=== PATIENT | male | born 1970 | race Hispanic/Latino ===

== ENCOUNTER 2020-07-20 12:16 | Emergency (ER) | payer OTHER ==
[~2020-07-20] VITALS: Ht 170.2 cm; Wt 83.5 kg
[2020-07-20] MEDS ORDERED: KETOROLAC TROMETHAMINE 30 MG/ML VIAL IV STA (12:36)
[2020-07-20] MEDS ORDERED: SODIUM CHLORIDE 0.9% 1000ML 1,000 ML IV STA (12:36)
[2020-07-20] MEDS ORDERED: ONDANSETRON HCL INJ 2MG/ML 2ML 2 MG/ML VIAL IV STA (12:36)
[2020-07-20] MEDS ORDERED: PANTOPRAZOLE 40 MG 10ML VIAL IV STA (12:36)
[2020-07-20 13:09] LABS: BASOPHILS % 0.6 % (0.0-1.0); EOSINOPHILS # (AUTO) 0.2 (0.0-0.4); EOSINOPHILS % 2.9 % (0.0-6.0); HEMATOCRIT 45.4 % (38.2-49.6); HEMOGLOBIN 15.7 g/dL (14.0-18.0); LYMPHOCYTES # (AUTO) 2.3 (1.0-3.2); LYMPHOCYTES % 34.9 % (18.0-39.1); MEAN CORPUSCULAR HEMOGLOBIN 30.8 pg (28-32); MEAN CORPUSCULAR HGB CONC 34.6 g/dL (31-35); MEAN CORPUSCULAR VOLUME 89.2 fL (81-99); MONOCYTES # (AUTO) 0.4 (0.2-0.8); MONOCYTES % 5.8 % (4.4-11.3); NEUTROPHILS # (AUTO) 3.6 (2.1-6.9); NEUTROPHILS % 55.6 % (38.7-80.0); PLATELET COUNT 197 x10e3/uL (140-360); RED BLOOD COUNT 5.09 x10e6/uL (4.3-5.7)
[2020-07-20 13:22] LABS: INR 0.94
[2020-07-20 13:23] LABS: PARTIAL THROMBOPLASTIN TIME 28.3 seconds (23.8-35.5)
--- NOTE | 2020-07-20 13:26 | Diagnostic Imaging Report ---
EXAM: CT Abdomen and Pelvis WITHOUT intravenous contrast INDICATION: ^Stone Protocol ^[id number] ^1240 ^Y. COMPARISON: None. TECHNIQUE: Abdomen and pelvis were scanned utilizing a multidetector helical scanner from the lung base to the pubic symphysis without administration of IV contrast. Coronal and sagittal reformations were obtained. Routine technique was performed. IV CONTRAST: None ORAL CONTRAST: None COMPLICATIONS: None RADIATION DOSE: Total DLP: 406 mGy*cm Dose modulation, iterative reconstruction, and/or weight based adjustment of the mA/kV was utilized to reduce the radiation dose to as low as reasonably achievable. FINDINGS: LOWER THORAX: Normal. HEPATOBILIARY: No focal hepatic lesions. No biliary ductal dilatation. The gallbladder appears unremarkable. SPLEEN: No splenomegaly. PANCREAS: No focal masses or ductal dilatation. ADRENALS: No adrenal nodules. KIDNEYS/URETERS: Negative for renal calculus. Negative for hydronephrosis or surrounding inflammatory changes. Ureters are not dilated. Negative for ureteral stone. PELVIC ORGANS/BLADDER: Urinary bladder shows mild wall thickening. Prostate is of normal size. PERITONEUM / RETROPERITONEUM: No free air or fluid. LYMPH NODES: No lymphadenopathy. VESSELS: Unremarkable. GI TRACT: Visualized bowel loops are nondilated. Moderate retained stool is noted within the right colon. Normal appendix is noted. Descending colon and sigmoid colon are decompressed. No surrounding inflammatory changes are noted. Negative for obstruction. Stomach is decompressed limiting evaluation. BONES AND SOFT TISSUES: No acute osseous abnormality. Mild multilevel degenerative changes of the lower thoracic spine are noted. No suspicious destructive lesion. Well-defined sclerotic lesion in the right femoral neck and a few subcentimeter sclerotic foci in the left femoral head are nonspecific and probably relate to bone islands. Soft tissues are unremarkable IMPRESSION: Mild bladder wall thickening could relate to cystitis. Correlate with urinalysis. Negative for urinary tract calculus or hydronephrosis. Signed by: Adonis Escobar MD on 07/20/2020 1:23 PM
[2020-07-20 13:41] LABS: BILIRUBIN,URINE NEGATIVE (NEGATIVE); CLARITY,URINE CLEAR (CLEAR); COLOR,URINE YELLOW (YELLOW); KETONES,URINE NEGATIVE (NEGATIVE); LEUKOCYTE ESTERASE ,URINE NEGATIVE (NEGATIVE); NITRITE,URINE NEGATIVE (NEGATIVE); PROTEIN,URINE DIPSTICK NEGATIVE (NEGATIVE); URINE UROBILINOGEN 0.2 mg/dL (0.2 - 1); WBC,URINE (MAN) 0-5 /HPF (0-5)
--- OUTSIDE RECORDS SUMMARY | 2020-07-20 13:48 | XMS REPORT | Continuity of Care Document ---
Author Author [facility] Organization [facility] Address [address] [place] [address] Phone Unavailable Care Team Providers Care Water Truck Driver Name Role Phone Asked, Pcp No PCP Unavailable Neela GALVAN Attphys Unavailable Problems Condition Name Condition Details Condition Category Status Onset Date Resolution Date Last Treatment Date Treating Clinician Comments Source Ileus Ileus Disease Active 2019-05-18 00:00:00 Mynor Deras Allergies, Adverse Reactions, Alerts This patient has no known allergies or adverse reactions. Social History Social Habit Start Date Stop Date Quantity Comments Source History SDOH Alcohol Std Drinks [facility] History SDOH Alcohol Binge [facility] Sex Assigned At [facility] Tobacco use and exposure 2019-05-18 00:00:00 2019-05-18 00:00:00 Lindarodrigue zahraa used [facility] Alcohol intake 2019-05-18 00:00:00 2019-05-18 00:00:00 Lifetime non-drinker (finding) [facility] History SDOH Alcohol Frequency 2019-05-18 00:00:00 2019-05-18 00:00:0 0 1 Mynor Mooreist Smoking Status Start Date Stop Date Source Never smoker Mynor garcia Medications Ordered Medication Name Filled Medication Name Start Date Stop Da te Current Medication? Ordering Clinician Indication Dosage Frequency Signature (SIG) Comments Components Source acetaminophen (TYLENOL) 650 MG 8 hr tablet 2019-05-19 14:25:36 Yes 650mg Q8H Take 650 mg by mouth every 8 (eight) hours as needed f or mild pain. Mynor Deras Procedures This patient has no known procedures. Plan of Care Planned Activity Planned Date Details Comments Source Future Scheduled Test 2020-03-27 00:00:00 INFLUENZA VACCINE [code = INFLUENZA VACCINE] Mynor Deras Results Test Description Test Time Test Comments Results Result Comments Source CT ABDOMEN/PELVIS WO 2020-07-20 13:19:00 [facility] CENTERName: FREDDIE KAPOOR : 1970 Sex: M [place] [id number] [place] [id number] Patient Name: FREDDIE KAPOOR MR #: [id number] : 1970 Age/Sex: 50/M Req #: [id number] [facility] Physician: Ordered by: BAYLEE GALVAN MD Report #: [id number] Location: ER Room/Bed: Procedure: [id number] CT/CT ABDOMEN/PELVIS WO Exam Date: 07/20/20 Exam Time: 1240 REPORT STATUS: Signed EXAM: CT Abdomen and Pelvis WITHOUT intravenous contrast INDICATION: Stone Protocol [id number] 1240 Y. COMPARISON: None. TECHNIQUE: Abdomen and pelvis were scanned utilizing a multidetector helical scanner from the lung base to the pubic symphysis without administration of IV contrast. Coronal and sagittal reformations were obtained. Routine technique was performed. IV CONTRAST: None ORAL CONTRAST: None COMPLICATIONS: None RADIATION DOSE: Total DLP: 406 mGy*cm Dose modulation, iterative reconstruction, and/or weight based adjustment of the mA/kV was utilized to reduce the radiation dose to as low as reasonably achievable. FINDINGS: LOWER THORAX: Normal. HEPATOBILIARY: No focal hepatic lesions. No biliary ductal dilatation. The gallbladder appears unremarkable. SPLEEN: No splenomegaly. PANCREAS: No focal masses or ductal dilatation. ADRENALS: No adrenal nodules. KIDNEYS/URETERS: Negative for renal calculus. Negative for hydronephrosis or surrounding inflammatory changes. Ureters are not dilated. Negative for ureteral stone. PELVIC ORGANS/BLADDER: Urinary bladder shows mild wall thickening. Prostate is of normal size. PERITONEUM / RETROPERITONEUM: No free air or fluid. LYMPH NODES: No lymphadenopathy. VESSELS: Unremarkable. GI TRACT: Visualized bowel loops are nondilated. Moderate retained stool is noted within the right colon. Normal appendix is noted. Descending colon and sigmoid colon are decompressed. No surrounding inflammatory changes are noted. Negative for obstruction. Stom ach is decompressed limiting evaluation. BONES AND SOFT TISSUES: No acute osseous abnormality. Mild multilevel degenerative changes of the lower thoracic spine are noted. No suspicious destructive lesion. Well-defined sclerotic lesion in the right femoral neck and a few subcentimeter sclerotic foci in the left femoral head are nonspecific and probably relate to bone islands. Soft tissues are unremarkable IMPRESSION: Mild bladder wall thickening could relate to cystitis. Correlate with urinalysis. Negative for urinary tract calculus or hydronephrosis. Signed by: Cindy Escobar MD on 07/20/2020 1:23 PM Dictated By: CINDY ESCOBAR MD [id number] Transcribed By: KEVAN on 07/20/20 1323 COPY TO: BAYLEE GALVAN MD
--- OUTSIDE RECORDS SUMMARY | 2020-07-20 13:48 | XMS REPORT | Clinical Summary ---
Author Author [facility] Organization [facility] Address Unknown Phone Unavailable Care Team Providers Care Business Performance Advisor Name Role Phone Asked, No Pcp PCP Unavailable Allergies No Known Active Allergies Medications End Date Status Medication Sig Dispensed Refills Start Date Active acetaminophen (TYLENOL) Take 650 mg 0 650 MG 8 hr tablet by mouth every 8 (eight) hours as needed for mild pain. Active Problems Problem Noted Date Ileus 05/18/2019 Social History Date Tobacco Use Types Packs/Day Years Used Never Smoker Smokeless Tobacco: Never Used Drinks/Week oz/Week Comments Alcohol Use Never Alcohol Habits Answer Date Recorded How often do you have a drink containing alcohol? Never 05/18/2019 How many drinks containing alcohol do you have on No t asked a typical day when you are drinking? How often do you have six or more drinks on one Not asked occasion? Sex Assigned at Date Recorded Not on file Last Filed Vital Signs Not on file Plan of Treatment Health Maintenance Due Date Last Done Comments INFLUENZA VACCINE 03/27/2020 Results Not on fileafter 07/20/2019 Insurance Type Payer Benefit Subscriber ID Effective Phone Address Plan / Dates Group O CIGNA CIGNA OPEN [id number] ACCESS/NET resent WORK Advance Directives For more information, please contact: [phone] Patient Inspection Manager Explanation Type Date Recorded Advance Directives, 05/18/2019 12:39 AM Living Will and Medical Power of Diesel Engine Engineer
[2020-07-20 13:58] LABS: ALANINE AMINOTRANSFERASE 26 IU/L (0-55); ALBUMIN 4.6 g/dL (3.5-5.0); ALBUMIN/GLOBULIN RATIO 1.5 (0.8-2.0); ALKALINE PHOSPHATASE 54 IU/L (40-150); ANION GAP 11.8 mmol/L (8-16); BLOOD UREA NITROGEN 11 mg/dL (7-26); BUN/CREATININE RATIO 11 (6-25); CARBON DIOXIDE 27 mmol/L (22-29); CHLORIDE 105 mmol/L (98-107); CREATINE KINASE 132 IU/L (30-200); CREATININE, SERUM 0.96 mg/dL (0.72-1.25); EST GLOMERULAR FILTRATION RATE > 60 ML/MIN (60-); GLUCOSE 99 mg/dL (74-118); LIPASE 10 U/L (8-78); POTASSIUM 3.8 mmol/L (3.5-5.1); SODIUM 140 mmol/L (136-145)
--- NOTE | 2020-07-20 14:34 | Emergency Department Note ---
History of Present Illnes History of Present Illness Chief Complaint: Abdominal Complaints History of Present Illness This is a 50 year old male Patient in from home with complaints of diffuse abdominal pain that radiates to the left flank, nausea and dizziness that started Sunday. Patient reports that the pain has grown progressively worse since it started. Denies vomiting, diarrhea and fever. Denies history of kidney stones. Reports last bowel movement was this morning. Historian: Patient Arrival Mode: Car Thread Reeler Required: No Onset (how long ago): day(s) (2) Location: left abdomen Quality: pain Radiation: Reports non-radiation Severity: moderate Timing of current episode: intermittent Progression: waxing and waning Chronicity: new Context: Denies recent illness Relieving factors: none Exacerbating factors: none Associated symptoms: Reports denies other symptoms Past Medical/Family History Physician Review I have reviewed the patient's past medical and family history. Any updates have been documented here. Past Medical History Recent Fever: No Clinical Suspicion of Infectio: No New/Unexplained Change in Ment: No Past Medical History: None Past Surgical History: None Social History Smoking Cessation: Unknown if ever smoked Counseling Performed: No Alcohol Use: Social Any Illegal Drug Use: No TB Exposure/Symptoms: No Physically hurt or threatened: No Family History Family history of heart diseas: No Other Any Pre-Existing Lines (PICC,: No Review of Systems Review of Systems Constitutional: Reports no symptoms EENTM: Reports no symptoms Cardiovascular: Reports no symptoms Respiratory: Reports no symptoms Gastrointestinal: Reports as per HPI Genitourinary: Reports no symptoms Musculoskeletal: Reports no symptoms Integumentary: Reports no symptoms Neurological: Reports no symptoms Psychological: Reports no symptoms Endocrine: Reports no symptoms Hematological/Lymphatic: Reports no symptoms Physical Exam Related Data Allergies: Coded Allergies: No Known Allergies (Unverified , 07/20/20) Triage Vital Signs Vital Signs Date Time Temp Pulse Resp B/P (MAP) Pulse Ox O2 Delivery O2 Flow Rate FiO2 07/20/20 12:22 98.5 65 14 145/89 99 Room Air Vital signs reviewed: Yes Physical Exam CONSTITUTIONAL Constitutional: Present well-developed, Present well-nourished HENT HENT: Present normocephalic, Present atraumatic, Present oropharynx clear/moist, Present nose normal HENT L/R: Present left ext ear normal, Present right ext ear normal EYES Eyes: Reports PERRL, Reports conjunctivae normal NECK Neck: Present ROM normal PULMONARY Pulmonary: Present effort normal, Present breath sounds normal CARDIOVASCULAR Cardiovascular: Present regular rhythm, Present heart sounds normal, Present c apillary refill normal, Present normal rate GASTROINTESTINAL Abdominal: Present soft, Present bowel sounds normal, Present tender (mild ttp left abd); Absent guarding, Absent rebound GENITOURINARY Genitourinary: Present exam deferred SKIN Skin: Present warm, Present dry MUSCULOSKELETAL Musculoskeletal: Present ROM normal NEUROLOGICAL Neurological: Present alert, Present oriented x 3, Present no gross motor or sensory deficits PSYCHOLOGICAL Psychological: Present mood/affect normal, Present judgement normal Results Laboratory Result Diagram: 07/20/20 1245 07/20/20 1328 Laboratory Laboratory Tests Test 07/20/20 13:28 07/20/20 12:45 Urine Color Yellow (YELLOW) Urine Clarity Clear (CLEAR) Urine pH 7 (5 - 7) Urine Specific [place] 1.020 (1.010-1.025) Urine Protein Negative (NEGATIVE) Urine Glucose (UA) Negative (NEGATIVE) Urine Ketones Negative (NEGATIVE) Urine Blood Negative (NEGATIVE) Urine Nitrite Negative (NEGATIVE) Urine Bilirubin Negative (NEGATIVE) Urine Urobilinogen 0.2 mg/dL (0.2 - 1) Urine Leukocyte Esterase Negative (NEGATIVE) Urine RBC None /HPF (0-5) Urine WBC 0-5 /HPF (0-5) Urine Epithelial Cells None /LPF (NONE) Urine Bacteria None /HPF (NONE) Sodium Level 140 mmol/L (136-145) Potassium Level 3.8 mmol/L (3.5-5.1) Chloride Level 105 mmol/L (98-107) Carbon Dioxide Level 27 mmol/L (22-29) Anion Gap 11.8 mmol/L (8-16) Blood Urea Nitrogen 11 mg/dL (7-26) Creatinine 0.96 mg/dL (0.72-1.25) Estimat Glomerular Filtration Rate > 60 ML/MIN (60-) BUN/Creatinine Ratio 11 (6-25) Glucose Level 99 mg/dL (74-118) Calcium Level 9.0 mg/dL (8.4-10.2) Total Bilirubin 0.6 mg/dL (0.2-1.2) Aspartate Amino Transf (AST/SGOT) 27 IU/L (5-34) Alanine Aminotransferase (ALT/SGPT) 26 IU/L (0-55) Alkaline Phosphatase 54 IU/L (40-150) Creatine Kinase 132 IU/L (30-200) Creatine Kinase MB 1.50 ng/mL (0-5.0) Troponin I 0.001 ng/mL (0-0.300) Total Protein 7.7 g/dL (6.5-8.1) Albumin 4.6 g/dL (3.5-5.0) Globulin 3.1 g/dL (2.3-3.5) Albumin/Globulin Ratio 1.5 (0.8-2.0) Lipase 10 U/L (8-78) White Blood Count 6.53 x10e3/uL (4.8-10.8) Red Blood Count 5.09 x10e6/uL (4.3-5.7) Hemoglobin 15.7 g/dL (14.0-18.0) Hematocrit 45.4 % (38.2-49.6) Mean Corpuscular Volume 89.2 fL (81-99) Mean Corpuscular Hemoglobin 30.8 pg (28-32) Mean Corpuscular Hemoglobin Concent 34.6 g/dL (31-35) Red Cell Distribution Width 12.0 % (11.7-14.4) Platelet Count 197 x10e3/uL (140-360) Neutrophils (%) (Auto) 55.6 % (38.7-80.0) Lymphocytes (%) (Auto) 34.9 % (18.0-39.1) Monocytes (%) (Auto) 5.8 % (4.4-11.3) Eosinophils (%) (Auto) 2.9 % (0.0-6.0) Basophils (%) (Auto) 0.6 % (0.0-1.0) Neutrophils # (Auto) 3.6 (2.1-6.9) Lymphocytes # (Auto) 2.3 (1.0-3.2) Monocytes # (Auto) 0.4 (0.2-0.8) Eosinophils # (Auto) 0.2 (0.0-0.4) Basophils # (Auto) 0.0 (0.0-0.1) Absolute Immature Granulocyte (auto 0.01 x10e3/uL (0-0.1) Prothrombin Time 13.0 seconds (11.9-14.5) Prothromb Time International Ratio 0.94 Activated Partial Thromboplast Time 28.3 seconds (23.8-35.5) Lab results reviewed: Yes Imaging Imaging results reviewed: Yes Impressions EXAM: CT Abdomen and Pelvis WITHOUT intravenous contrast INDICATION: ^Stone Protocol ^[id number] ^1240 ^Y. COMPARISON: None. TECHNIQUE: Abdomen and pelvis were scanned utilizing a multidetector helical scanner from the lung base to the pubic symphysis without administration of IV contrast. Coronal and sagittal reformations were obtained. Routine technique was performed. IV CONTRAST: None ORAL CONTRAST: None COMPLICATIONS: None RADIATION DOSE: Total DLP: 406 mGy*cm Dose modulation, iterative reconstruction, and/or weight based adjustment of the mA/kV was utilized to reduce the radiation dose to as low as reasonably achievable. FINDINGS: LOWER THORAX: Normal. HEPATOBILIARY: No focal hepatic lesions. No biliary ductal dilatation. The gallbladder appears unremarkable. SPLEEN: No splenomegaly. PANCREAS: No focal masses or ductal dilatation. ADRENALS: No adrenal nodules. KIDNEYS/URETERS: Negative for renal calculus. Negative for hydronephrosis or surrounding inflammatory changes. Ureters are not dilated. Negative for ureteral stone. PELVIC ORGANS/BLADDER: Urinary bladder shows mild wall thickening. Prostate is of normal size. PERITONEUM / RETROPERITONEUM: No free air or fluid. LYMPH NODES: No lymphadenopathy. VESSELS: Unremarkable. GI TRACT: Visualized bowel loops are nondilated. Moderate retained stool is noted within the right colon. Normal appendix is noted. Descending colon and sigmoid colon are decompressed. No surrounding inflammatory changes are noted. Negative for obstruction. Stomach is decompressed limiting evaluation. BONES AND SOFT TISSUES: No acute osseous abnormality. Mild multilevel degenerative changes of the lower thoracic spine are noted. No suspicious destructive lesion. Well-defined sclerotic lesion in the right femoral neck and a few subcentimeter sclerotic foci in the left femoral head are nonspecific and probably relate to bone islands. Soft tissues are unremarkable IMPRESSION: Mild bladder wall thickening could relate to cystitis. Correlate with urinalysis. Negative for urinary tract calculus or hydronephrosis. Signed by: Adonis Escobar MD on 07/20/2020 1:23 PM Assessment & Plan Medical Decision Making MDM left abd pain - cbc, chem, lipase, ua, ct abd/pelvis - eval for uti, ureterolithiasis, diverticulitis. colitis Reassessment Reassessment Pt feels better. dc shahrzad reynolds zofran, f/u pcp kristen ayoub prn Assessment & Plan Final Impression: (1) Abdominal pain Depart Disposition: HOME, SELF-CARE Last Vital Signs Date Time Temp Pulse Resp B/P (MAP) Pulse Ox O2 Delivery O2 Flow Rate FiO2 07/20/20 14:11 59 18 120/85 98 Room Air 07/20/20 12:22 98.5 Medications in the ED Pantoprazole Sodium 40 mg ONCE STAT IV Last administered on 07/20/20at 13:20; Admin Dose 40 MG; Start 07/20/20 at 12:36; Stop 07/20/20 at 12:41; Status DC Ondansetron HCl 4 mg ONCE STAT IV Last administered on 07/20/20at 13:20; Admin Dose 4 MG; Start 07/20/20 at 12:36; Stop 07/20/20 at 12:41; Status DC Ketorolac Tromethamine 30 mg ONCE STAT IV Last administered on 07/20/20at 13:20; Admin Dose 30 MG; Start 07/20/20 at 12:36; Stop 07/20/20 at 12:41; Status DC Sodium Chloride 1,000 ml @ 0 mls/hr Q0M STAT IV Last administered on 07/20/20at 13:20; Admin Dose 250 MLS/HR; Start 07/20/20 at 12:36; Stop 07/20/20 at 12:38; Status DC BAYLEE GALVAN MD Jul 20, 2020 14:34
[2020-07-20 14:45] VITALS: BP 129/98
== END 2020-07-20 14:48 | disposition home or self-care (01) ==
LOC: ER 12:36
DX: R10.31 Right lower quadrant pain (principal)
CPT/HCPCS: 36415; 74176; 80053; 81001; 82550; 82553; 83690; 84484; 85025; 85610; 85730; 87086; 99284; C9113; J1885; J2405; J7030